=== PATIENT | female | born 2000 | race Caucasian/White ===

== ENCOUNTER 2024-10-05 07:19 | Inpatient (IN) ==
[2024-10-05] MEDS ORDERED: CALCIUM CARBONATE 500 MG CHEWABLE TAB PO PRN (07:40)
[2024-10-05] MEDS ORDERED: ACETAMINOPHEN 325 MG TAB PO PRN ×2 (07:40→13:49)
[2024-10-05] MEDS ORDERED: LIDOCAINE 1% LOCAL 20 ML VIAL INFIL PRN (07:40)
--- NOTE | 2024-10-05 07:44 | History & Physical Report ---
Date of Service October 05, 2024 Assessment & Plan (1) Normal labor: Plan admit, desires epidural. fetus category one. urine tox screen. anticipate . History of Present Illness Chief Complaint: contractions Primary Care Provider: NO PCP Patient is a 23yowf with iup at 38 6/7 who presents to labor and delivery with contractions and rom at 6:20am. Very painful. Desiring epidural. Admits to nurse of MJ use. and Delivery Plans Hepatitis B-not immune * Hep B anti-core total antibody positive Smoker - encouraged cessation OB Labs: Blood Type A Positive 04/09/24 Antibody Screen NEGATIVE 04/09/24 Hgb 10.5 g/dl (12.0-16.0) L 07/30/24 Hct 32.1 % (37.0-47.0) L 07/30/24 MCV 85.3 fL (80.0-100.0) 04/09/24 Plt Count 230 K/uL (130-400) 04/09/24 Rubella IgG Antibody Immune (Immune) 04/09/24 Treponema pallidum Ab Negative (Negative) 07/30/24 Hep Bs Antigen Negative (Negative) 04/09/24 Hepatitis C Antibody Negative (Negative) 04/09/24 HIV 1&2 Ab/P24 Ag 4thGn Negative (Negative) 04/09/24 Glucose 1 Hr 50 gm 161 mg/dl (70-130) H 04/29/24 Maternal Serum AFP 50.6 ng/mL 04/29/24 OB Optional Labs: Chlamydia trachomatis RNA Not Detected (NotDetected) 04/09/24 Neisseria gonorrhoeae RNA Not Detected (NotDetected) 04/09/24 Alpha Fetoprotein Triple Screen SEE NOTE 04/29/24 Labs Reviewed: cfdna-low risk--mln Horizon 14-negative--mln gbs neg Allergies Allergy/AdvReac Type Severity Reaction Status Date / Time No Known Allergies Allergy Verified 10/05/24 07:36 Home Medications Medication Instructions Recorded Confirmed Type prenat.vits,laz,uis-ahjt-crrpx 1 tab PO DAILY 04/02/24 10/05/24 History ferrous sulfate 325 mg (65 mg 325 mg PO DAILY 10/05/24 10/05/24 History iron) tablet (iron) Patient History Medical History Smoker Surgical History H/O toe surgery left toe surgery as Family History Aunt Cancer Grandfather Heart disease Social History Smoking Status: Current every day smoker Tobacco Type: Cigarettes Cigarettes Per Day: 5; Hx Alcohol Use: No Hx Substance Use: Yes Prescribed Medications: Marijuana Substance Use Type Other:: "couple weeks ago" Preferred Language: Yi marital status: Single marital status details: Oziel (25) [phone] Current Living Situation: Significant Other Current Living Situation Comment: lives with fob, dogs, cats, fob to change litter. current occupational status: unemployed current occupation: unemployed. Feels Safe at Home: Yes OB History g1--present [employer] History noncontributory Physical Exam Constitutional: WD/WN, vitals as above Gastrointestinal (Abdomen): soft, gravid, nt Psychiatric: A+Ox3, euthymic affect Genitourinary: cx--6/100/-1 per nursing toco--q2-3min efm--130s with mod variability, accels to 150s, no decels Results & Data Vital Signs (Past 12 Hours) Vital Signs Temp Pulse Resp BP 10/05/24 07:32 18 10/05/24 07:32 36.7 C 18 10/05/24 07:30 100 H 143/100 H Coding Level of Care Code None Diagnoses Normal labor O80; Z37.9
[2024-10-05] MEDS ORDERED: LIDOCAINE 2% MPF LOCAL 5 ML VIAL EPI PRN (07:47)
[2024-10-05] MEDS ORDERED: ROPIVACAINE 0.5% PF 5 MG/ML 20 ML VIAL EPI PRN (07:47)
[2024-10-05] MEDS ORDERED: NALOXONE HCL 0.4 MG/1 ML VIAL/CARP IV PRN (07:47)
[2024-10-05] MEDS ORDERED: fentANYL 2 MCG/ML BUPIVacaine 0.125%-NSS 100ML BAG EPI PRN (07:47)
[2024-10-05] MEDS ORDERED: BUPIVACAINE 0.25% PF 30 ML VIAL EPI PRN (07:47)
[2024-10-05] MEDS ORDERED: diphenhydrAMINE 50 MG/ML VIAL IV PRN (07:47)
[2024-10-05] MEDS ORDERED: NALOXONE HCL 1 MG in SODIUM CHLORIDE 0.9% 1,000 ML IV PRN (07:47)
[2024-10-05] MEDS ORDERED: NALBUPHINE HCL INJ 10 MG/ML AMP IV PRN (07:47)
[2024-10-05] MEDS ORDERED: SODIUM CHLORIDE 0.9% PF INJ 10 ML VIAL EPI PRN (07:47)
[2024-10-05] MEDS ORDERED: ONDANSETRON INJ 2 MG/ML 2 ML VIAL IV PRN ×2 (07:47→14:00)
--- NOTE | 2024-10-05 07:49 | Anesthesiology Consultation ---
Date of Service October 05, 2024 Assessment & Plan ASA ASA2 Proposed Anesthesia Anesthesia Type: Labor Epidural Risk / Benefits Reviewed With: PT / POA / Parent / Guardian, Accepts Plan and Informed Consent Obtained History Allergies Allergy/AdvReac Type Severity Reaction Status Date / Time No Known Allergies Allergy Verified 10/05/24 07:36 Medications Home Medications Medication Instructions Recorded Confirmed Last Taken prenat.vits,laz,spr-bitb-kiqnx 1 tab PO DAILY 04/02/24 10/05/24 10/04/24 ferrous sulfate 325 mg (65 mg 325 mg PO DAILY 10/05/24 10/05/24 10/04/24 iron) tablet (iron) Active Medications Generic Name Dose Route Start Last Admin Trade Name Freq PRN Reason Stop Dose Admin Lactated Ringer's 1,000 mls @ 125 mls/hr 10/05/24 07:40 10/05/24 08:27 Lr IV 10/07/24 07:39 125 mls/hr .Q8H PRN Administration L&D Protocol Protocol Past Medical History Medical History Smoker Exercise / Class Metabolic Activity II 4-5 Yardwork/Stairs/Walk up hill Past Family History Family History Aunt Cancer Grandfather Heart disease Past Surgical History Surgical History H/O toe surgery left toe surgery as Past Anesthesia History No Hx of Anesthesia Complications and No Family Hx of Anesthesia Complications History of PONV No Hx of PONV and No Hx of Motion Sickness Social History Smoking Status: Current every day smoker Smoking cigarettes per day: 5 Hx Alcohol Use: No Hx Substance Use: Yes substance use type: marijuana Substance Use Type Other:: "couple weeks ago" Review of Systems denies fever/cough/ colds/ chest pain/ SOB/ ROMEO denies ROMEO Physical Exam Vital Signs Last Vital Signs Temp 36.7 C 10/05/24 07:32 Pulse 75 10/05/24 08:43 Resp 18 10/05/24 07:32 BP 125/74 10/05/24 08:43 Pulse Ox 100 10/05/24 08:42 ENMT Mouth: no TMJ abnormality and no dentition abnormality Thyromental Distance: > or= 3.5 Finger Breadths Mallampati Class: II Neck neck extension not limited Respiratory normal respiratory effort; no respiratory distress Auscultation: lungs clear to auscultation bilaterally Cardiovascular Rate/Rhythm: regular rate and regular rhythm Neurologic moves all extremities Psychiatric Orientation: alert and oriented x 3 Testing Laboratory Results 10/05/24 07:47
[2024-10-05] MEDS: LACTATED RINGER'S 1,000 ML IV PRN (07:54)
[2024-10-05 08:00] LABS: Hematocrit (blood only) 35.4 % (37.0-47.0); Hemoglobin 11.7 g/dl (12.0-16.0); Mean Corpuscular Hemoglobin 27.2 pg (25.0-34.0); Mean Corpuscular Volume 82.3 fL (80.0-100.0); Platelet Count 210 K/uL (130-400); RDW Standard Deviation 47.4 fL (36.4-46.3); Red Blood Count 4.30 M/uL (4.20-5.40); White Blood Count 14.41 K/ul (4.8-10.8)
[2024-10-05] MEDS: BUPIVACAINE 0.25% PF 30 ML VIAL EPI STA (08:17)
[2024-10-05] MEDS: LIDOCAINE 2%/EPINEPHRINE 1:200,000 20 ML PF EPI STA (08:17)
[2024-10-05] MEDS: fentANYL 2 MCG/ML BUPIVacaine 0.125%-NSS 100ML BAG ONE (08:19)
[2024-10-05] MEDS: SODIUM CHLORIDE 0.9% PF INJ 10 ML VIAL EPI STA (08:21)
[2024-10-05 08:24] LABS: Amphetamines+Metham, Urine Neg (Neg); MDMA (Ecstacy), Urine Neg (Neg); Marijuana, Urine Pos (Neg)
[2024-10-05 08:54] LABS: Anion Gap 9.0 (3-11); Bilirubin,Total 0.4 mg/dl (0.2-1.0); Calcium 8.5 mg/dl (8.6-10.3); Carbon Dioxide 22.0 mmol/L (21-32); Chloride 107.0 mmol/L (98-107); Potassium 3.6 mmol/L (3.5-5.1); Sodium 138.0 mmol/L (136-145)
[2024-10-05 09:00] LABS: Alanine Aminotransferase 10.0 U/L (7-52); Albumin Globulin Ratio 1.5 (0.9-2); Alkaline Phosphatase 155.0 U/L (34-104); Blood Urea Nitrogen 12.0 mg/dl (6-23); Creatinine Clr Calc Pharmacy 156.2 ml/min; Globulin 2.2 gm/dl (2.5-4.0); Glucose 95.0 mg/dl (70-99(Fasting)); Total Protein 5.5 gm/dl (6.0-8.3)
[2024-10-05] MEDS: LIDOCAINE 2%/EPINEPHRINE 1:200,000 20 ML PF ONE (09:02)
[2024-10-05] MEDS: BUPIVACAINE 0.25% PF 30 ML VIAL ONE (09:02)
[2024-10-05] MEDS: SODIUM CHLORIDE 0.9% PF INJ 10 ML VIAL ONE (09:03)
[2024-10-05 10:57] LABS: Protein Creatinine Ratio Urine 0.2 (0-0.2); Total Protein Urine Random 29.9 mg/dl (0-11.9)
[2024-10-05] MEDS: OXYTOCIN 30 UNITS/NSS 30 UNITS/500 ML BAG IV PRN (13:04)
[2024-10-05] MEDS: METHYLERGONOVINE MALEATE 0.2 MG/ML AMP IM ONE (13:07)
--- NOTE | 2024-10-05 13:24 | Delivery Summary ---
Vaginal Delivery Summary Date of Service October 05, 2024 Vaginal Delivery Summary (vaginal laceration) PREOPERATIVE DIAGNOSIS: 1. Single intrauterine at 38 6/7 2. SROM 3. Labor POSTOPERATIVE DIAGNOSIS: 1. Single intrauterine at 38 6/7 2. SROM 3. Labor 4. Delivered PROCEDURE: 1. Normal spontaneous vaginal delivery. SURGEON: Candice Stratton MD ANESTHESIA: Epidural. QUANTITATIVE BLOOD LOSS: 355 mL FLUIDS: Continuous LR. URINE OUTPUT: 200cc by straight catheter following procedure COMPLICATIONS: None. CONDITION: Stable. INDICATIONS: 23 yo G1 at 38 6/7 wga presented with SROM and labor. She was 6cm on arrival and received an epidural for pain control. She progressed to complete and desired to push. FINDINGS: A viable male infant, weight pending with Apgars of 8 and 9 at 1 and 5 minutes respectively. SPECIMEN: Cord blood OPERATIVE REPORT: The patient progressed to 10 cm, 100% effaced and +2 station, pushed over intact perineum with anesthesia to deliver a viable male infant, weight and Apgars as above. Head of delivered in SILVER position. No nuchal cord was present. Body and shoulders were delivered without difficulty. was delivered to maternal abdomen and nursing staff. Delayed cord clamping was performed for 60 seconds. Cord was clamped and cut. Cord blood was obtained. Placenta delivered spontaneously intact with 3-vessel cord. IV oxytocin and fundal massage were given however lower uterine atony was noted. BP was normotensive so one dose of methergine was administered and there was excellent hemostasis. Vagina, cervix, perineum, and placenta were inspected. A right vaginal laceration was repaired using 3-0 vicryl, there was excellent hemostasis. Superficial left labial abrasion was hemostatic and did not need repaired. Sponge and needle counts correct x2. No sponges were left behind. 800mcg cytotec MO was administered prophylactically. Mother and stable in immediate period. [facility] Vaginal Delivery Charge Vaginal Delivery Codes: 15019 global code for the antepartum, delivery, and post- Delivery Type Details: (vaginal laceration)
[2024-10-05] MEDS ORDERED: HYDROCORTISONE ACETATE 25 MG SUPP PR PRN (13:49)
[2024-10-05] MEDS ORDERED: OXYTOCIN 30 UNITS/NSS 30 UNITS/500 ML BAG IV PRN (13:49)
[2024-10-05] MEDS: ONDANSETRON INJ 2 MG/ML 2 ML VIAL ONE (14:04)
--- NOTE | 2024-10-05 14:36 | Anesthesia Procedure Note ---
Date of Service October 05, 2024 Anesthesia Post Epidural Note Vital Signs Vital Signs: Temp Pulse Resp BP Pulse Ox 36.8 C 88 20 132/81 95 10/05/24 11:00 10/05/24 14:21 10/05/24 12:30 10/05/24 14:21 10/05/24 13:52 Pain Intensity Abdomen: Pain Intensity: 5 Notes Mental Status: alert / awake / arousable and participated in evaluation Nausea / Vomiting: adequately controlled Pain: adequately controlled Airway Patency, RR, SpO2: stable & adequate BP & HR: stable & adequate Hydration State: stable & adequate Neuraxial Anesthesia: was administered and sensory block resolved Anesthetic Complications: no major complications apparent and Pt Satisfied with anesthetic care Epidural: Removed without complications and With tip intact
[2024-10-05] MEDS: DIPHTHER/TETAN/PERTUS Vaccine (Tdap, Adol/Adult) 0.5mL IM ONE (15:10)
[2024-10-05] MEDS: BENZOCAINE 20% SPRY 85 APPLN/85 GM CAN EXT PRN (16:13)
[2024-10-05] MEDS: IBUPROFEN 600 MG TAB PO PRN (20:44)
[2024-10-05] MEDS: DOCUSATE SODIUM 100 MG CAP PO SCH (20:45)
--- NOTE | 2024-10-06 07:44 | Obstetrical Progress Note ---
Date of Service October 06, 2024 Assessment & Plan (1) Encounter for care and examination after delivery: 23 yo PP1 from , doing well -Meeting all pp milestones -A+/rubella immune/ -f/u 6 weeks for appt, continue routine care Subjective Ambulation: ambulating normally Voiding: no voiding problems Passing Gas:: Yes Diet Tolerance:: regular diet Lochia:: Small Pain well managed with medication Review of Systems Denies fevers, chills, n/v, PARSONS, CP, SOB Physical Exam Constitutional WD/WN, vitals as above no acute distress Respiratory normal respiratory effort, lungs clear to auscultation Cardiovascular RRR, no murmur, no edema Gastrointestinal (Abdomen) Percussion/Palpation: abdomen soft; abdomen nontender fundus firm at umbilicus and NT Musculoskeletal BLE symmetric, nonerythematous, nontender Results & Data Vital Signs (Past 12 Hours) Vital Signs Temp Pulse Resp BP Pulse Ox O2 Del Method 10/06/24 04:00 97.7 F 69 16 130/89 99 Room Air 10/05/24 23:45 98.1 F 84 16 132/84 99 Room Air
[2024-10-06] MEDS: PRENATAL VITAMIN 1 TAB PO SCH (08:16)
[2024-10-06] MEDS: FERROUS SULFATE 325 MG TAB PO SCH (08:16)
[2024-10-06 21:27] VITALS: O2SAT 100
[2024-10-07 01:06] VITALS: RESP 18; TEMP 97.9
--- NOTE | 2024-10-07 07:03 | Obstetrical Progress Note ---
Date of Service October 07, 2024 Assessment & Plan (1) Encounter for care and examination after delivery: 23 yo PP2 from , doing well -Meeting all pp milestones -A+/rubella immune/ -f/u 6 weeks for appt, stable for discharge today. Mild bps noted intermittently, had normal labs. Will arrange for bp check this week Subjective Ambulation: ambulating normally Voiding: no voiding problems Passing Gas:: Yes Diet Tolerance:: regular diet Lochia:: Small Feeding Type:: breast feeding Pain well managed with medication Review of Systems Denies fevers, chills, n/v, PARSONS, CP, SOB Physical Exam Constitutional WD/WN, vitals as above no acute distress Respiratory normal respiratory effort, lungs clear to auscultation Cardiovascular RRR, no murmur, no edema Gastrointestinal (Abdomen) Percussion/Palpation: abdomen soft; abdomen nontender fundus firm at umbilicus and NT Musculoskeletal BLE symmetric, nonerythematous, nontender Results & Data Vital Signs (Past 12 Hours) Vital Signs Temp Pulse Resp BP Pulse Ox O2 Del Method 10/07/24 00:24 97.9 F 67 18 144/84 H 100 Room Air 10/06/24 19:42 98.1 F 91 H 16 129/77 100 Room Air
[2024-10-07 07:04] VITALS: BP 130/79
[2024-10-07 08:34] VITALS: PULSE 67
== END 2024-10-07 13:07 | disposition home or self-care (01) | DRG 807 ==
LOC: OPB 07:19 → 4S1 07:19 → 4E2 16:10